=== PATIENT | male | born 1985 | race Caucasian/White ===

== ENCOUNTER 2019-06-30 16:23 | Emergency (ER) | payer OTHER, SELFPAY ==
--- NOTE | 2019-06-30 16:28 | ED.GENADULT ---
HPI - General Adult General Chief complaint: Upper Respiratory Infection Stated complaint: COLD/COUGH/SORE THROAT Time Seen by Provider: 06/30/19 17:15 Source: patient and RN notes reviewed Mode of arrival: ambulatory Limitations: no limitations History of Present Illness HPI narrative: This patient's had a cough which is been nonproductive x2 weeks with a slight sore throat during that time and some nasal congestion. He did not have any fever. Last night his throat became more sore and this is been increased today. He has not had any known exposure to anyone with strep throat, mono, influenza, bronchitis, pneumonia that he is aware of. Is not been traveling. He has had some mild right ear discomfort but no drainage from the ear. He has had no left ear pain or drainage. There is been no nausea, no vomiting, no diarrhea. He has had no hematuria, no dysuria, no pyuria. He has had no rashes. He is not been traveling. Related Data Home Medications Medication Instructions Recorded Confirmed omeprazole 20 mg PO DAILY 04/14/19 06/30/19 dextromethorphan HBr [Vicks 06/30/19 DayQuil Cough] Allergies Allergy/AdvReac Type Severity Reaction Status Date / Time No Known Allergies Allergy Verified 06/30/19 16:51 Review of Systems Review of Systems: Narrative: CONSTITUTIONAL: Denies fever, chills, or sweats. Noncontributory except as pertains to the past medical history and history of present illness. EYES: Denies visual changes, redness, or discharge. ENT: Denies rhinorrhea, congestion, sore throat, or otalgia. CARDIOVASCULAR: Denies chest pain, palpitations, or edema. RESPIRATORY: Denies cough or dyspnea. GASTROINTESTINAL: Denies abdominal pain, nausea, vomiting, or diarrhea. GENITOURINARY: Denies dysuria or hematuria. SKIN: Denies rash or itching. MUSCULOSKELETAL: Denies back pain, joint pain, or myalgia. NEUROLOGIC: Denies headache, numbness, or weakness. PSYCHIATRIC: Denies anxiety or depression. [facility] Past Medical History Medical History (Updated 06/30/19 @ 17:21 by Celso Lee MD) GERD (gastroesophageal reflux disease) Social History Social History (Updated 04/24/19 @ 08:02 by Jeff Villatoro MD) Smoking status: Never smoker Alcohol intake: current Comments At time of signature, I have reviewed and agree with nursing past medical, surgical, social, and family history.Please see nursing chart for further information. There is no relevant family history pertinent to the presenting complaint. Exam Narrative: Exam Narrative: GENERAL: Well-appearing, well-nourished, and in no acute distress. HEAD: Normocephalic, atraumatic. EYES: PERRLA and EOMI. EARS: TM's clear bilaterally and the canals are clear. NOSE: Nares clear, no rhinorrhea or epistaxis. THROAT:Mucous membranes moist.Oropharynx is erythematous with exudates present. NECK: Supple. No adenopathy of the neck, supraclavicular, axillary, or inguinal areas. RESPIRATORY: No respiratory distress. Airway patent. Respirations non-labored. There are no wheezes, no rales, no retractions, no use accessory muscle respirations. Patient's not cyanotic and not dyspneic. HEART: Regular rate and rhythm. No murmur heard. Normal peripheral pulses. ABDOMEN: Soft, nontender, nondistended, normal active bowel sounds.No masses. No rebound or guarding, No organomegaly. There is no CVA pain. No pain McBurney's point. The patient is a negative Peña sign and negative Rovsing sign. There are no pulsatile masses no audible bruits. EXTREMITIES: No clubbing/cyanosis/ edema. Normal strength & range of motion. SKIN: Warm, dry.Normal color. No rash or skin lesions. Patient is well-nourished well-hydrated and has moist mucous membranes and no tenting of the skin. NEURO:Alert and oriented.CN 2-12 grossly intact. No focal deficits. PSYCH: Normal mood and affect. Course Vital Signs Vital signs: Patient is afebrile and the other vital signs within normal limits, except his
[2019-06-30 16:44] VITALS: BP 145/93; PULSE 78; RESP 18; TEMP 37.1; O2SAT 100
== END 2019-06-30 17:26 | disposition home or self-care (01) ==
PROVIDERS: Emergency Provider Family Medicine; PCP Nurse Practitioner Adult Health
DX: J02.0 Streptococcal pharyngitis (principal); K21.9 Gastro-esophageal reflux disease without esophagitis
CPT/HCPCS: 87880; 99213; G0463

== ENCOUNTER 2020-04-30 06:57 | Outpatient (NON) | payer OTHER, SELFPAY ==
[2020-04-30 18:51] LABS: SARS-CoV-2 RNA PCR Negative
== END 2020-04-30 06:58 ==
LOC: ANHCOVIDDT 07:06
PROVIDERS: PCP Nurse Practitioner Adult Health; Visit Provider Nurse Practitioner Adult Health
DX: Z20.828 Contact with and (suspected) exposure to other viral communicable diseases (principal); R09.81 Nasal congestion
CPT/HCPCS: 87635; C9803; U0003

== ENCOUNTER 2020-11-27 14:38 | Outpatient (CLI) | payer OTHER, SELFPAY ==
--- NOTE | 2020-11-27 16:55 | WPDPFTINT ---
PFT Procedure Performed PFT Procedure Performed Spirometry with Pre/Post Bronchodilator Plethysmography (Lung Vol) Diffusing Cap (DLCO) Flow Vol Loop PFT Interpretation This is a pulmonary function test with pre and post-bronchodilator spirometry, plethysmography and diffusing capacity. The test was performed and results interpreted in accordance with the 2019 and 2005 ATS/ERS Task Force guidelines respectively using the Global Lung Function Initiative-2012 reference equations. Patient demonstrated good effort and cooperation. Reproducibility criteria were met. The quality of the pre bronchodilator spirometry maneuver was Grade A and post bronchodilator spirometry maneuver was Grade A. Findings: Spirometry: the contour the inspiratory and expiratory flow tracing are normal. The pre bronchodilator FVC is 6.19 L, 108% predicted. The pre bronchodilator FEV1 is 4.48 L, 96% predicted. The FEV1: FVC ratio is 72%. The post bronchodilator FVC is 6.36 L, representing a 3% increase. The post bronchodilator FEV1 is 4.62 L, representing a 3% increase. Plethysmography: The total lung capacity is 8.71 L, 119% predicted. The functional residual capacity is 3.70 L, 101% predicted. The residual volume is 2.51 L, 138% predicted. Diffusing capacity: The absolute diffusion capacity is 30.7, 87% predicted. The diffusing capacity corrected for alveolar volume is 3.77, 76% predicted. Impression: The spirometry is normal without evidence of an obstructive abnormality. There is no significant improvement after inhaling a single dose of albuterol. The lung volumes are normal. The diffusing capacity is normal. There are no prior studies for comparison
== END 2020-11-27 14:39 | disposition home or self-care (01) ==
LOC: ANHPFT 14:39
PROVIDERS: PCP Nurse Practitioner Adult Health; Visit Provider Nurse Practitioner Adult Health
DX: R05 Cough (principal)
CPT/HCPCS: 94060; 94726; 94729

== ENCOUNTER 2021-02-26 12:17 | Emergency (ER) | payer OTHER, SELFPAY ==
[2021-02-26 12:22] VITALS: BP 141/88; PULSE 91; RESP 14; TEMP 37.1; O2SAT 99
--- NOTE | 2021-02-26 12:55 | PC.NURSE ---
This RN received report regarding pt from Officer Miguel Lakhani from [facility]. Per the officer, they have received multiple calls from his and neighbors over the past 3 days. Officer reports shared concerns that pt is paranoid. This patient has a pmh of meth abuse, but denies any drug use at this time. Patient also denies any SI/HI. pt found wandering the [place] by this RN and Officer Miguel Lakhani. Pt asked to go into room 15. pt refusing to go into 15, stating it makes me feel uncomfortable . pt made aware this was only open room and that if he wanted to receive treatment he needed to remain in room. patient is alert and fully oriented.
--- NOTE | 2021-02-26 13:04 | PC.NURSE ---
This patient amb out of ED without being seen. This RN unable to obtain VS on prior to departure.
== END 2021-02-26 13:05 | disposition left against medical advice (07) ==
LOC: ANHED 12:42
PROVIDERS: PCP Nurse Practitioner Adult Health
DX: F41.9 Anxiety disorder, unspecified (principal)
CPT/HCPCS: 99199